=== PATIENT | female | born 1940 | race Caucasian/White ===

== ENCOUNTER 2019-07-27 09:11 | Observation (INO) ==
[2019-07-27 11:02] LABS: Hematocrit 25.1 % (37.0-47.0); Mean Cell Volume 63.1 fl (78-100); Mean Corpuscular Hemoglobin 17.3 pg (27-31); Mean Corpuscular Hgb Conc 27.5 g/dl (32-36); Mean Platelet Volume 9.1 fl (8-12.5); Neutrophil % 65.6 % (42-75.0); Platelet Count 461 K/mm3 (150-450); Red Blood Count 3.98 M/mm3 (4.2-5.4); Red Cell Distribution Width 19.7 % (11.5-14.0); White Blood Count 4.6 K/mm3 (4.0-10.5)
[2019-07-27 11:31] LABS: ALT 19 U/L (19-67); AST 19 U/L (0-48); Albumin * 3.5 gm/dl (3.4-5.0); Alkaline Phosphatase * 68 U/L (50-170); Anion Gap 15.6 mmol/L (6.8-13.8); BNP * 73 pg/mL (5-550); BUN/Creatinine Ratio 25.6 (9.0-21.6); Bilirubin, Total 0.5 mg/dL (0.0-1.1); Blood Urea Nitrogen 22 mg/dL (3-23); Ca. Corrected For Albumin 9.2 mg/dL (8.4-10.2); Calcium * 9.1 mg/dL (7.9-10.9); Carbon Dioxide 26.4 mmol/L (24-32.6); Chloride 101 mmol/L (97-106); Chol/HDL Risk Ratio 2.8 mg/dL (3.3-4.4); Cholesterol 176 mg/dL (0-200); Glucose * 95 mg/dL (70-110); HDL Cholesterol 62 mg/dL (40-60); LDL Cholesterol 105 mg/dL (70-130); Sodium 139 mmol/L (132-142); TSH * 1.059 uIU/mL (0.358-3.74); Total Protein 7.3 gm/dL (6.2-8.2); Triglycerides 44 mg/dL (30-200); Troponin I Less than 0.017 ng/mL (0.00-0.10); VLDL Cholesterol 9 mg/dL (5-40)
[2019-07-27 11:35] LABS: Hemoglobin 6.9 gm/dL (12.5-16.0)
[2019-07-27] MEDS ORDERED: NITROGLYCERIN 0.4 MG/TAB BTL SL PRN (16:25)
--- NOTE | 2019-07-27 16:39 | HP ---
Chief Complaint - Chief Complaint Date of Service: 07/27/19 Time of Service: 15:33 Chief Complaint: Shortness of breath for several months History of Present Illness: 78-year-old female with a past medical history of CKD stage III, asthma, anxiety, depression, degenerative joint disease, hypertension, hyperlipidemia, osteoarthritis presents from her primary care physician's office with complaints of shortness of breath times several months. Her PCP Dr. Bone is ordered a work-up on her and found that her hemoglobin was low at 6.9. He had her sent to the hospital for admission. At the time of admission she denies shortness chest pain, abdominal pain, nausea vomiting, blood in her stool or black stools. She is being admitted for symptomatic anemia and blood cell transfusion. Medical History (Last Reviewed 07/27/19 @ 13:51 by Ana Laura Velázquez RN) Anxiety Onset Date: ~10/21/17 Asthma Onset Date: ~1999 pos. methycholine test Chronic kidney disease, stage III (moderate) Onset Date: 06/04/06 GFR of 43 DJD (degenerative joint disease) Onset Date: ~2004 hip and spine Depression Onset Date: ~10/21/17 Diverticulosis Onset Date: Unknown Headache Onset Date: Unknown occipital Hyperlipidemia Onset Date: ~10/21/17 Hypertension Onset Date: ~2000 Knee pain Onset Date: Unknown Osteoarthritis Onset Date: ~2000 Pneumonia, viral Onset Date: ~10/21/17 Sciatica Onset Date: ~2000 Surgical History: Surgical History (Last Reviewed 07/27/19 @ 13:51 by Ana Laura Velázquez RN) History of hip replacement Onset Date: ~12/2004 right History of hysterectomy Onset Date: ~10/21/17 intact ovaries Hx of tonsillectomy Onset Date: ~1945 S/P epidural steroid injection Onset Date: 01/05/08 C4-5 Family History: Family History (Last Reviewed 07/27/19 @ 13:51 by Ana Laura Velázquez RN) Brother Alive and well Daughter Alive and well Father , age 88-colon cancer(dx age early 80's) Colon cancer Mother , age 92-unsure of cause No problems noted. Sister Cancer uterine ca Lymphedema Son Alive and well x3 Grandmother , Maternal-colon cancer Colon cancer Sister Cancer skin cancer Sister Alive and well Social History: (Last Updated 07/27/19 @ 11:16 by Vijay Bone MD) Social History: Marital status: household members: spouse number of children: 4 current occupational status: retired current occupation: retired Service: No Tobacco: Smoking Status: Never smoker Alcohol: alcohol intake: current Alcohol type: wine alcohol intake frequency: holiday/special occasion details: Occasionally Substance Use: substance use type: does not use Dietary Habits: caffeine: No Personal Safety: victim of physical abuse: No victim of emotional abuse: No Review Of Systems (GEN) - Review of Systems Generalized/Overall Review: Absent: Fever Respiratory: Present: Shortness of Breath Cardiac: Absent: Chest Pain Abdominal: Absent: Nausea, Vomiting, Abdominal Pain Misc: All systems neg except as marked Allergies/Adverse Reactions: Allergies Allergy/AdvReac Type Severity Reaction Status Date / Time shellfish derived Allergy Severe Anaphylaxis Verified 07/27/19 13:49 dog dander Allergy congestion Verified 07/27/19 09:21 egg Allergy unsure Verified 07/27/19 09:21 gabapentin [From Neurontin] Allergy didn't Verified 07/27/19 09:21 like the feeling grass pollen Allergy wheeze Verified 07/27/19 09:21 naproxen [From Naprosyn] Allergy didn't Verified 07/27/19 09:21 like the feeling tree and shrub pollen Allergy wheeze Verified 07/27/19 09:21 weed pollen Allergy wheeze Verified 07/27/19 09:21 Home Medications: HOME MEDICATIONS nitroglycerin 0.4 mg sublingual tablet 0.4 mg SL Q5M PRN 10/21/17 [Last Taken Unknown] omega 0-iyt-rfd-fish oil 1,200 mg (144 mg-216 mg) capsule 1 cap PO DAILY cap 10/21/17 [Last Taken Unknown] aspirin 81 mg tablet,delayed release 81 mg PO DAILY 10/29/17 [Last Taken Unknown] cholecalciferol (vitamin D3) 25 mcg (1,000 unit) tablet 1,000 unit PO DAILY 10/09 [Last Taken Unknown] potassium gluconate 595 mg (99 mg) tablet See Rx Instructions PO DAILY tab 10/29/17 [Last Taken Unknown] ascorbic acid (vitamin C) 500 mg tablet 500 mg PO DAILY 06/04/18 [Last Taken Unknown] amlodipine 5 mg tablet 5 mg PO DAILY #90 tab 04/06/19 [Last Taken Unknown] montelukast 10 mg tablet 5 mg PO DAILY #45 tab 04/06/19 [Last Taken Unknown] spironolactone 25 mg tablet 25 mg PO DAILY #90 tab 04/06/19 [Last Taken Unknown] Exam - Exam Vital Signs: Vital Signs - Last Taken Temp 37.0 C 07/27/19 15:35 Pulse 89 07/27/19 15:35 Resp 16 07/27/19 15:35 BP 143/51 07/27/19 15:35 Pulse Ox 97 07/27/19 15:35 Constitutional: Present: Alert, Cooperative, Well developed, Well nourished, Elderly ENT Exam: Present: hearing grossly normal, moist mucous membranes Eye Exam: bilateral eye: normal inspection Neck: Present: non-tender. Absent: lymphadenopathy (R), lymphadenopathy (L) Back Exam: Present: normal inspection, no CVA tenderness Respiratory: Present: lungs clear, no respiratory distress, no accessory muscle use, No wheezing. Absent: crackles, rhonchi Cardiovascular/Chest: Present: normal peripheral pulses, regular rate, rhythm, no murmur Peripheral Pulses: dorsalis-pedis (R): 1+, dorsalis-pedis (L): 1+ Abdomen: Present: Normal bowel sounds, soft, nontender Extremity: Present: lower extremity edema - 1+ pitting edema in bilateral lower extremities Skin Exam: Present: normal color, warm/dry Neurologic: Present: no motor/sensory deficits, alert, normal mood/affect Appearance: Present: appropriate appearance, appropriate insight Eye contact: Present: cooperative, good eye contact Thoughts: Present: normal thought pattern, normal mood /affect Diagnostic Studies: Abnormal Lab Results 07/27/19 07/27/19 07/27/19 Range/Units 10:15 10:15 13:47 RBC 3.98 L (4.2-5.4) M/mm3 Hgb 6.9 L* D (12.5-16.0) gm/dL Hct 25.1 L (37.0-47.0) % MCV 63.1 L (78-100) fl MCH 17.3 L (27-31) pg MCHC 27.5 L (32-36) g/dl RDW 19.7 H (11.5-14.0) % Plt Count 461 H (150-450) K/mm3 Eosinophils % 5.9 H (0.0-3.0) % Basophils % 1.1 H (0.0-1.0) % Lymphocytes # 0.93 L (1.5-3.5) k/mm3 Anion Gap 15.6 H (6.8-13.8) mmol/L BUN/Creatinine Ratio 25.6 H (9.0-21.6) HDL Cholesterol 62 H (40-60) mg/dL Cholesterol/HDL Ratio 2.8 L (3.3-4.4) mg/dL Crossmatch See Detail Laboratory Results WBC 4.6 K/mm3 (4.0-10.5) 07/27/19 10:15 RBC 3.98 M/mm3 (4.2-5.4) L 07/27/19 10:15 Hgb 6.9 gm/dL (12.5-16.0) L* D 07/27/19 10:15 Hct 25.1 % (37.0-47.0) L 07/27/19 10:15 MCV 63.1 fl (78-100) L 07/27/19 10:15 MCH 17.3 pg (27-31) L 07/27/19 10:15 MCHC 27.5 g/dl (32-36) L 07/27/19 10:15 RDW 19.7 % (11.5-14.0) H 07/27/19 10:15 Plt Count 461 K/mm3 (150-450) H 07/27/19 10:15 MPV 9.1 fl (8-12.5) 07/27/19 10:15 Immature Gran % (Auto) 0.20 % (0.001-0.429) 07/27/19 10:15 Immature Gran # (Auto) 0.01 K/mm3 (0.000-0.0310) 07/27/19 10:15 Neutrophils % 65.6 % (42-75.0) 07/27/19 10:15 Lymphocytes % 20.4 % (20-51) 07/27/19 10:15 Monocytes % 6.8 % (0.0-9) 07/27/19 10:15 Eosinophils % 5.9 % (0.0-3.0) H 07/27/19 10:15 Basophils % 1.1 % (0.0-1.0) H 07/27/19 10:15 Nucleated RBC % 0.0 k/mm3 (0-1) 07/27/19 10:15 Neutrophils # 3.0 K/mm3 (1.3-6.0) 07/27/19 10:15 Lymphocytes # 0.93 k/mm3 (1.5-3.5) L 07/27/19 10:15 Monocytes # 0.3 k/mm3 (0.0-1.0) 07/27/19 10:15 Eosinophils # 0.3 k/mm3 (0.0-0.7) 07/27/19 10:15 Absolute Basophils 0.1 k/mm3 (0.0-0.1) 07/27/19 10:15 Sodium 139 mmol/L (132-142) 07/27/19 10:15 Plasma Sodium 139 mmol/L (130-142) 07/27/19 10:15 Potassium 4.0 mmol/L (3.4-4.6) 07/27/19 10:15 Chloride 101 mmol/L (97-106) 07/27/19 10:15 Carbon Dioxide 26.4 mmol/L (24-32.6) 07/27/19 10:15 Anion Gap 15.6 mmol/L (6.8-13.8) H 07/27/19 10:15 BUN 22 mg/dL (3-23) 07/27/19 10:15 Creatinine 0.86 mg/dL (0.4-1.4) 07/27/19 10:15 Est GFR (Non-Af Amer) 67 mL/min (60-130) 07/27/19 10:15 BUN/Creatinine Ratio 25.6 (9.0-21.6) H 07/27/19 10:15 Random Glucose 95 mg/dL (70-110) 07/27/19 10:15 Calcium 9.1 mg/dL (7.9-10.9) 07/27/19 10:15 Calcium Adj for Albumin 9.2 mg/dL (8.4-10.2) 07/27/19 10:15 Total Bilirubin 0.5 mg/dL (0.0-1.1) 07/27/19 10:15 AST 19 U/L (0-48) 07/27/19 10:15 ALT 19 U/L (19-67) 07/27/19 10:15 Alkaline Phosphatase 68 U/L (50-170) 07/27/19 10:15 Troponin I Less than 0.017 ng/mL (0.00-0.10) 07/27/19 10:15 B-Natriuretic Peptide 73 pg/mL (5-550) 07/27/19 10:15 Total Protein 7.3 gm/dL (6.2-8.2) 07/27/19 10:15 Albumin 3.5 gm/dl (3.4-5.0) 07/27/19 10:15 Triglycerides 44 mg/dL (30-200) 07/27/19 10:15 Cholesterol 176 mg/dL (0-200) 07/27/19 10:15 LDL Cholesterol 105 mg/dL (70-130) 07/27/19 10:15 VLDL Cholesterol 9 mg/dL (5-40) 07/27/19 10:15 HDL Cholesterol 62 mg/dL (40-60) H 07/27/19 10:15 Cholesterol/HDL Ratio 2.8 mg/dL (3.3-4.4) L 07/27/19 10:15 TSH 1.059 uIU/mL (0.358-3.74) 07/27/19 10:15 Blood Type O Positive 07/27/19 13:47 Antibody Screen Negative 07/27/19 13:47 Crossmatch See Detail 07/27/19 13:47 Assessment/Plan - Narrative Narrative: 78-year-old female with a past medical history of CKD stage III, asthma, anxiety, depression, degenerative joint disease, hypertension, hyperlipidemia, osteoarthritis presents from her primary care physician's office with complaints of shortness of breath times several months. Her PCP Dr. Bone is ordered a work-up on her and found that her hemoglobin was low at 6.9. He had her sent to the hospital for admission. At the time of admission she denies shortness chest pain, abdominal pain, nausea vomiting, blood in her stool or black stools. She is being admitted for symptomatic anemia and blood cell transfusion. - Assessment/Plan (1) Symptomatic anemia Problem: Acute (2) Shortness of breath Problem: Acute (3) Hypertension Problem: Chronic Qualifiers: Hypertension type: essential hypertension (4) Hyperlipidemia Problem: Chronic Qualifiers: (5) Chronic kidney disease Problem: Chronic Qualifiers: Chronic kidney disease stage: stage 3 (moderate) (6) Asthma Problem: Chronic Qualifiers:
[2019-07-27 21:07] LABS: Hemoglobin 8.7 gm/dL (12.5-16.0); Mean Cell Volume 66.5 fl (78-100); Mean Platelet Volume 8.6 fl (8-12.5); Neutrophil % 70.2 % (42-75.0); Platelet Count 409 K/mm3 (150-450); Red Blood Count 4.36 M/mm3 (4.2-5.4); Red Cell Distribution Width 23.6 % (11.5-14.0); White Blood Count 5.7 K/mm3 (4.0-10.5)
[2019-07-28 06:23] LABS: Hematocrit 26.9 % (37.0-47.0); Mean Cell Volume 65.9 fl (78-100); Mean Corpuscular Hemoglobin 19.4 pg (27-31); Mean Corpuscular Hgb Conc 29.4 g/dl (32-36); Neutrophil # 3.5 K/mm3 (1.3-6.0); Neutrophil % 67.6 % (42-75.0); Platelet Count 408 K/mm3 (150-450); Red Blood Count 4.08 M/mm3 (4.2-5.4); Red Cell Distribution Width 23.3 % (11.5-14.0); White Blood Count 5.2 K/mm3 (4.0-10.5)
[2019-07-28 06:42] LABS: Hemoglobin 7.9 gm/dL (12.5-16.0)
[2019-07-28] MEDS ORDERED: SPIRONOLACTONE 25 MG TABLET PO SCH (09:00)
[2019-07-28] MEDS ORDERED: amLODIPine BESYLATE 5 MG TABLET PO SCH (09:00)
[2019-07-28] MEDS ORDERED: CHOLECALCIFEROL 1,000 UNIT CAPSULE PO SCH (09:00)
[2019-07-28] MEDS ORDERED: ASCORBIC ACID 500 MG TABLET PO SCH (09:00)
[2019-07-28] MEDS ORDERED: OMEGA-3 FATTY ACIDS 1 CAP CAPSULE PO SCH (09:00)
[2019-07-28] MEDS ORDERED: ASPIRIN 81 MG TABLET.DR PO SCH ×2 (09:00→21:00)
[2019-07-28] MEDS ORDERED: MONTELUKAST SODIUM 5 MG TAB.CHEW PO SCH ×2 (09:00→21:00)
--- NOTE | 2019-07-28 12:02 | DS ---
(1) Symptomatic anemia Problem: Acute (2) Shortness of breath Problem: Acute (3) Hypertension Problem: Chronic Qualifiers: Hypertension type: essential hypertension (4) Hyperlipidemia Problem: Chronic Qualifiers: (5) Chronic kidney disease Problem: Chronic Qualifiers: Chronic kidney disease stage: stage 3 (moderate) (6) Asthma Problem: Chronic Qualifiers: Hospital Course: 78-year-old female with a past medical history of CKD stage III, asthma, anxiety, depression, degenerative joint disease, hypertension, hyperlipidemia, osteoarthritis presents from her primary care physician's office with complaints of shortness of breath times several months. Her PCP Dr. Bone is ordered a work-up on her and found that her hemoglobin was low at 6.9. He had her sent to the hospital for admission. At the time of admission she denies shortness chest pain, abdominal pain, nausea vomiting, blood in her stool or black stools. She is being admitted for symptomatic anemia and blood cell transfusion. She is status post 1 unit of blood and her hemoglobin today is 7.9. She is feeling better with less shortness of breath and no palpitations. I considered doing further work-up for the microcytosis but since she is status post blood transfusion the results will be skewed. She will likely need work-up for the microcytosis including Iron studies and peripheral smear as an outpatient. I will also have her repeat her CBC in 2 days on 07/30/2019 to assure that her hemoglobin is holding up. Guaiac stool was negative in the hospital. She complains of constipation and hard stools and was advised to take [id number]-[id number] fiber supplementation. She will follow-up with her PCP within 1 week of discharge. Procedures Performed: none Results and Findings: Lab Pending Results 07/27/19 10:15: WBC 4.6, RBC 3.98 L, Hgb 6.9 L* D, Hct 25.1 L, MCV 63.1 L, MCH 17.3 L, MCHC 27.5 L, RDW 19.7 H, Plt Count 461 H, MPV 9.1, Immature Gran % (Auto) 0.20, Immature Gran # (Auto) 0.01, Neutrophils % 65.6, Lymphocytes % 20.4, Monocytes % 6.8, Eosinophils % 5.9 H, Basophils % 1.1 H, Nucleated RBC % 0.0, Neutrophils # 3.0, Lymphocytes # 0.93 L, Monocytes # 0.3, Eosinophils # 0.3, Absolute Basophils 0.1 07/27/19 10:15: Sodium 139, Plasma Sodium 139, Potassium 4.0, Chloride 101, Carbon Dioxide 26.4, Anion Gap 15.6 H, BUN 22, Creatinine 0.86, Est GFR (Non-Af Amer) 67, BUN/Creatinine Ratio 25.6 H, Random Glucose 95, Calcium 9.1, Calcium Adj for Albumin 9.2, Total Bilirubin 0.5, AST 19, ALT 19, Alkaline Phosphatase 68, Troponin I Less than 0.017, B-Natriuretic Peptide 73, Total Protein 7.3, Albumin 3.5, Triglycerides 44, Cholesterol 176, LDL Cholesterol 105, VLDL Cholesterol 9, HDL Cholesterol 62 H, Cholesterol/HDL Ratio 2.8 L, TSH 1.059 07/27/19 13:47: Blood Type O Positive, Antibody Screen Negative, Crossmatch See Detail 07/27/19 21:00: WBC 5.7 D, RBC 4.36, Hgb 8.7 L, Hct 29.0 L, MCV 66.5 L, MCH 20.0 L, MCHC 30.0 L, RDW 23.6 H, Plt Count 409, MPV 8.6, Immature Gran % (Auto) 0.50 H, Immature Gran # (Auto) 0.03, Neutrophils % 70.2, Lymphocytes % 17.1 L, Monocytes % 7.3, Eosinophils % 4.0 H, Basophils % 0.9, Nucleated RBC % 0.0, Neutrophils # 4.0, Lymphocytes # 0.98 L, Monocytes # 0.4, Eosinophils # 0.2, Absolute Basophils 0.1 07/28/19 05:45: WBC 5.2, RBC 4.08 L, Hgb 7.9 L*, Hct 26.9 L, MCV 65.9 L, MCH 19.4 L, MCHC 29.4 L, RDW 23.3 H, Plt Count 408, MPV 9.0, Immature Gran % (Auto) 0.40, Immature Gran # (Auto) 0.02, Neutrophils % 67.6, Lymphocytes % 18.8 L, Monocytes % 7.0, Eosinophils % 5.4 H, Basophils % 0.8, Nucleated RBC % 0.0, Neutrophils # 3.5, Lymphocytes # 0.97 L, Monocytes # 0.4, Eosinophils # 0.3, Absolute Basophils 0.0 07/28/19 09:46: Stool Occult Blood Negative Discharge Location: Home Disposition: Home self-care Condition: Stable Discharge Activity: Activity as tolerated Discharge Diet: Low salt, Low fat/chol Referrals: Vijay Bone MD [Primary Care Provider] - Complete Home Medications List: Complete Home Medication List: nitroglycerin 0.4 mg sublingual tablet 0.4 mg SL Q5M PRN 10/21/17 omega 8-rhk-odp-fish oil 1,200 mg (144 mg-216 mg) capsule 1 cap PO DAILY cap 10/21/17 aspirin 81 mg tablet,delayed release 81 mg PO DAILY 10/29/17 cholecalciferol (vitamin D3) 25 mcg (1,000 unit) tablet 1,000 unit PO DAILY 10/29/17 potassium gluconate 595 mg (99 mg) tablet See Rx Instructions PO DAILY tab 10/29/17 ascorbic acid (vitamin C) 500 mg tablet 500 mg PO DAILY 06/04/18 amlodipine 5 mg tablet 5 mg PO DAILY #90 tab 04/06/19 montelukast 10 mg tablet 5 mg PO DAILY #45 tab 04/06/19 spironolactone 25 mg tablet 25 mg PO DAILY #90 tab 04/06/19
[2019-07-28 13:45] VITALS: BP 133/59
== END 2019-07-28 13:30 | disposition home or self-care (01) ==
LOC: CCFAL → MS 09:11 → LAB 09:11
PROVIDERS: ADMIT Internal Medicine; ATTEND Internal Medicine
CPT/HCPCS: 36415; 36430; 80053; 80061; 82272; 83519; 83880; 84443; 84484; 85025; 86850; 93005; 99215; G0378; G0463; P9016

== ENCOUNTER 2020-07-18 08:00 | Inpatient (IN) ==
--- NOTE | 2020-07-06 08:45 | ANES ---
Anesthesia Pre Procedure Eval HOME MEDICATIONS nitroglycerin 0.4 mg sublingual tablet 0.4 mg SL Q5M PRN 10/21/17 [Last Taken Unknown] amlodipine 5 mg tablet 5 mg PO DAILY #90 tab 04/19/20 [Last Taken Unknown] montelukast 10 mg tablet 5 mg PO DAILY #45 tab 04/19/20 [Last Taken Unknown] spironolactone 25 mg tablet 25 mg PO DAILY #90 tab 04/19/20 [Last Taken Unknown] tramadol 50 mg tablet 50 mg PO Q6H PRN #30 tab 04/28/20 [Last Taken Unknown] Allergies/Adverse Reactions: Allergies Allergy/AdvReac Type Severity Reaction Status Date / Time shellfish derived Allergy Severe Anaphylaxis Verified 06/07/20 12:43 dog dander Allergy congestion Verified 06/07/20 12:43 grass pollen Allergy wheeze Verified 06/07/20 12:43 tree and shrub pollen Allergy wheeze Verified 06/07/20 12:43 weed pollen Allergy wheeze Verified 06/07/20 12:43 gabapentin [From Neurontin] AdvReac didn't Verified 06/07/20 13:31 like the feeling naproxen [From Naprosyn] AdvReac didn't Verified 06/07/20 13:31 like the feeling - Planned Procedure Planned Procedure: Right Arthroplasty Total Knee Medical History (Last Reviewed 06/07/20 @ 13:32 by Brittney Alexander RN) Anxiety Onset Date: ~10/21/17 Asthma Onset Date: ~1999 pos. methycholine test Chronic kidney disease, stage III (moderate) Onset Date: 06/04/06 GFR of 43 DJD (degenerative joint disease) Onset Date: ~2004 hip and spine Depression Onset Date: ~10/21/17 Diverticulosis Onset Date: Unknown Headache Onset Date: Unknown occipital Hyperlipidemia Onset Date: ~10/21/17 Hypertension Onset Date: ~2000 Knee pain Onset Date: Unknown Osteoarthritis Onset Date: ~2000 Pneumonia, viral Onset Date: ~10/21/17 Sciatica Onset Date: ~2000 Surgical History (Last Reviewed 06/07/20 @ 13:32 by Brittney Alexander RN) History of hip replacement Onset Date: ~12/2004 right History of hysterectomy Onset Date: ~10/21/17 intact ovaries Hx of tonsillectomy Onset Date: ~1945 S/P epidural steroid injection Onset Date: 01/05/08 C4-5 Family History (Last Reviewed 06/07/20 @ 13:32 by Brittney Alexander RN) Brother Alive and well Daughter Alive and well Father , age 88-colon cancer(dx age early 80's) Colon cancer Mother , age 92-unsure of cause No problems noted. Sister Cancer uterine ca Lymphedema Son Alive and well x3 Grandmother , Maternal-colon cancer Colon cancer Sister Cancer skin cancer Sister Alive and well - Respiratory Smoking Status: Never smoker Discussed smoking cessation including day of surgery: No Sleep Apnea currently treated: No Sleep Apnea by current assessment: No Discussed Risks/Treatment of BETH: No - Cardiovascular Tolerate Activity: Fair Heart Sounds: S1 & S2, Regular - Anesthesia Assessment and Plan ASA Class: PS, III Anesthesia Type Plan: Block - Right ultrasound guided adductor canal nerve block for postop analgesia, Spinal
[~2020-07-18 08:00] MED LIST: MORPHINE SULFATE 15 MG TABLET.SA PO PRN; ROPIVACAINE/CLONIDIN/KETOROLAC 50 ML SYRINGE IJ PRN; TRANEXAMIC ACID 1,000 MG in NORMAL SALINE 100 ML IV PRN
[2020-07-18] MEDS: RINGER'S SOLUTION,LACTATED 1,000 ML IV PRN ×2 (08:49→11:54)
[2020-07-18] MEDS ORDERED: ceFAZolin SODIUM 1 GM VIAL ONE (09:02)
[2020-07-18] MEDS ORDERED: ROPIVACAINE/CLONIDIN/KETOROLAC 50 ML SYRINGE IJ ONE (09:02)
[2020-07-18] MEDS ORDERED: HYDROmorphone HCL 2 MG/ML VIAL IV PRN (09:20)
[2020-07-18] MEDS ORDERED: diphenhydrAMINE HCL 50 MG/ML VIAL IV PRN ×2 (09:20→12:18)
[2020-07-18] MEDS ORDERED: ONDANSETRON HCL/PF 2 MG/ML VIAL IV PRN ×2 (09:20→12:18)
[2020-07-18] MEDS ORDERED: PROCHLORPERAZINE EDISYLATE 5 MG/ML VIAL IV PRN (09:20)
[2020-07-18] MEDS ORDERED: NALOXONE HCL 0.4 MG/ML VIAL IV PRN (09:20)
[2020-07-18] MEDS ORDERED: LIDOCAINE HCL 20 ML VIAL ONE (09:23)
[2020-07-18] MEDS ORDERED: PROPOFOL VIAL IV ONE (09:24)
[2020-07-18] MEDS ORDERED: BUPIVACAINE HCL/EPINEPHRINE 50 ML VIAL ONE (09:24)
[2020-07-18] MEDS ORDERED: fentaNYL CITRATE/PF 50 MCG/ML AMPUL ONE (09:24)
[2020-07-18] MEDS ORDERED: ONDANSETRON HCL/PF 2 MG/ML VIAL ONE (09:24)
[2020-07-18] MEDS ORDERED: ceFAZolin SODIUM 1 GM VIAL IV ONE (10:30)
[2020-07-18] MEDS ORDERED: MAGNESIUM HYDROXIDE 30 ML UDC PO PRN (12:18)
[2020-07-18] MEDS ORDERED: MAG HYDROX/ALUMINUM HYD/SIMETH 30 ML UDC PO PRN (12:18)
[2020-07-18] MEDS ORDERED: DEXTROSE 5%-LACTATED RINGERS 1,000 ML IV PRN (12:18)
[2020-07-18] MEDS ORDERED: ZOLPIDEM TARTRATE 5 MG TABLET PO PRN (12:18)
[2020-07-18] MEDS ORDERED: MORPHINE SULFATE 2 MG/ML DISP.SYRIN IV PRN (12:18)
--- NOTE | 2020-07-18 12:18 | OR ---
Operative Report - Dictated Report Narrative: Date: 07/18/2020 Preoperative diagnosis: Right knee degenerative joint disease. Postoperative diagnosis: Right knee degenerative joint disease. Procedure: Right total knee arthroplasty. Surgeon: Ibrahima Nowak M.D. Property Handler: Jose Goncalves PA-C (provided and essential set of skilled, educated hands that assisted with transfer, positioning, prepping, draping, manipulation, retraction, placement of jigs, injection, insertion of implants, irrigation, closure wounds, and dressings all of which could not be performed by the available surgical crew) Anesthesia: Spinal with regional block and local periarticular joint injection. Complications: None Specimens: Bone. Estimated blood loss: Minimal. Tourniquet time: 70 minutes at 325 millimeters of mercury. Retained implants: Depuy Attune size 4 right lugged cemented posterior stabilized femoral component. Size 4 fixed-bearing cemented tibial platform. 4 by 5 millimeter posterior stabilized cross-linked tibial insert. 38 millimeter medialized patella button. Indications: Mrs. Castillo is a 79-year-old female who has had longstanding right knee pain and arthrosis. This patient was followed in my clinic for period of time with significant complaints of right knee pain consistent with arthritic changes. She had failed conservative measures including, but not limited to, activity modification, passage of time, medications, and other conservative measures. Patient wished to proceed with surgical treatment. The risks, benefits, and alternatives were discussed in clinic. The risks of , blood clots, bleeding, infection, nerve/tendon blood vessel/ injury, malposition of components, intraoperative fracture, postoperative limited range of motion, persistent pain, failure of components, and need for additional procedures. Patient wished to proceed consent was obtained after answering all questions. Procedure: After marking the correct extremity on the floor, the patient was taken to the operating room. A timeout was performed. IV antibiotics consisting of Ancef were administered prior to the procedure. A regional followed by spinal anesthetic was induced by anesthesia, per my request, on the operative table with all bony prominences well-padded. Polo catheter was placed, and a bump was placed under the operative side buttock. SCDs and FRED hose were utilized on the nonoperative leg. A well-padded tourniquet was applied to the operative thigh. The operative leg was then pre-scrubbed with alcohol, prepped, and draped in a standard sterile fashion. After exsanguinating the extremity with an Esmarch bandage, the tourniquet was inflated. After marking out the anterior knee for standard incision centered over the patella, the skin was incised and dissected down to the joint retinaculum. The joint retinaculum was marked out as well as the horizontal axis of the patella, and a standard medial parapatellar arthrotomy was then made. The most proximal aspect of the quadriceps tendon and the patella tendon insertion were protected from release. A partial synovectomy was performed as well as a resection of the infrapatellar fat pad. The distal femoral fat pad proximal to the trochlea was also resected using cautery. The soft tissues were elevated off the medial asp ect of the proximal tibia using a Rutherford elevator ensuring that we did not transect the medial collateral ligament. Upon initial evaluation range of motion was approximately 0 degrees to 120 degrees of flexion. There were signs of advanced arthrosis in the lateral and patellofemoral greater than medial joint spaces. There were large marginal osteophytes which were removed with a rongeur. The knee was hyperflexed and the patella was tucked laterally. Protecting the surrounding soft tissues with Homans, an entry drill was placed down the femoral canal using Whitesides line for guidance into the entry point. The intramedullary femoral alignment brian was utilized in order to cut the distal femur in 5 degrees of valgus resecting 10 millimeters of bone. Next the distal femur was sized to a size 4. A posterior referencing guide was utilized to place the distal femoral cutting block in 3 degrees of external rotation. This was pinned into place. The rotation was confirmed both visually and based on anatomic landmarks. The 4 in 1 cutting jig of the appropriate size was utilized in order to make all bony cuts. The rose wing was used to ensure no notching. Retractors were utilized in order to protect surrounding soft tissues. This cut did not result in any excessive notching. We then cut the box centered over the distal femur. This allowed for resection of the anterior and posterior cruciate ligaments. I then turned my attention to the preparation of the tibia. Using an extra medullary tibial alignment brian, 5 millimeters of bone was resected off the medial articular surface. This was made perpendicular to the mechanical axis of the joint with the alignment brian centered over the ankle mortise. The alignment brian was checked and was noted to be parallel to the [facility] anical axis, centered over the medial one third of the tibial tubercle, paralleling the anterior surface of the tibia. We then turned our attention to the remaining meniscus and soft tissues. These were removed while protecting the surrounding ligaments and soft tissues. The marginal osteophytes off the anterior, posterior, medial, lateral aspects of the femur and tibia were removed. The tibia was sized out to a size 4. Next the tibia was drilled and punched in an externally rotated position. Next the trial femur and a series of tibial inserts were utilized in order to allow for full extension and maximal flexion. It was found that a 5 millimeter insert gave the best range of motion and stability at multiple flexion points as well as at full extension there was less than 2 mm of gapping both medially and laterally. There is minimal anterior translation with the knee at 90 degrees of flexion and no signs of being able to dislocate the knee. The patella was then prepared. The initial thickness was 20 millimeters. This was reamed down to 11 millimeters parallel to the anterior surface of the patella. It was sized out to a size 38 medialized patella button. This was then drilled and trialed. Without any medial restraint the patella tracked appropriately and did not sublux or dislocate. At this point, it was felt these were the appropriate sized implants, and all trials were removed. The standard periarticular joint injection consisting of ropivacaine, Toradol, and epinephrine were injected into the periarticular joint tissues. The bony surfaces were thoroughly irrigated with a pulsatile-suction saline irrigation device. A bone plug from the prior resected anterior chamfer cut was placed into the drill hole at the distal femur. The bony surfaces were then dried in preparation for placement of the implants. The cement was vacuum mixed per the chain saw mechanic's instructions. The cement was placed on the dry bony surfaces and posterior aspect of the implants. The implants were impacted into place, removing all extruded cement. At this point anesthesia administered tranexamic acid per protocol intravenously. The knee was placed in extension with axial loading with the trial insert while the cement cured. Once the cement cured, all remaining extruded cement was removed. The knee was placed through a range of motion with the trial insert to ensure appropriate range of motion and stability. Final range of motion was approximately 0 to 120 degrees. The knee was again thoroughly irrigated with pulsatile saline lavage. The final polyethylene insert was then impacted into place ensuring no retained soft tissues. The remaining periarticular joint injection was injected. A medium Hemovac drain was placed exiting superior laterally. The knee was then placed over a triangle and the arthrotomy was closed with interrupted #1 Vicryl after thoroughly irrigating the joint. The deep and subcutaneous tissues were closed with interrupted 0 and 3-0 Vicryl respectively. Skin was closed with a running subcutaneous 3-0 Monocryl and Prineo Dermabond dressing. 4 x 4's, Sof-Rol, and a full leg Raimundo wrap were applied. All sponge, needle, blade, and instrument counts were correct prior to closing the wounds. Postoperative condition: The patient was awoken and transferred to the postanesthesia care unit in stable condition. Plan is to be admitted to the inpatient medical/surgical floor postoperatively for 24 hours of IV antibiotics, physical therapy, occupational therapy, and medical comanagement. Patient will be weightbearing as tolerated with range of motion as tolerated. DVT prophylaxis will be with SCDs, FRED hose, and pharmacological anticoagulation. Anticipated hospital stay is approximately 1-3 days.
--- NOTE | 2020-07-18 13:15 | ANES ---
Post Anesthesia Discharge - Transfer of Care Transfer of Care handoff given to nurse: Yes - Discharge from PACU Discharge from PACU when meets criteria: Yes - Discharge to ASU Discharge to ASU-no complications/pt stable: Yes
--- NOTE | 2020-07-18 13:17 | ANES ---
Anesthesia Procedure Note Procedure Note: ANESTHESIA PROCEDURE NOTE Date of Procedure: 07/18/2020. Time of procedure: 1025. Performed by: Riky Glynn CRNA Electrical Installer: None. Preprocedure diagnosis: Right knee degenerative joint disease. Post procedure diagnosis: Same. Procedure: Right ultrasound guided adductor canal block for postoperative analgesia. Indications: The patient is a 79-year-old female, requesting right ultrasound- guided abductor canal nerve block for postoperative analgesia related to right total knee arthroplasty. Findings: See below. Details of the procedure: The tissue over the intended target site was cleansed with ChloraPrepand draped in a sterile fashion. 2 ml Lidocaine 1 % was infiltrated to the skin and subcutaneous tissue at the intended target site. Under sterile technique and ultrasound guidance a 20-gauge block needle was inserted through the right sartorius muscle to the saphenous nerve just anterior and medial to the superficial femoral artery and vein. 15 mL's of 0.5% bupivacaine was injected after negative aspiration for blood. Needle tip and spread of local anesthetic surrounding the saphenous nerve was observed throughout the injection with real time ultrasound visualization. The needle was then removed intact. No complications were noted. The images were retained in the Hospital medical database. EBL: Minimal. Fluids: N/A. Specimen: N/A. Post procedure condition: The patient tolerated the procedure well. No complications were noted. Thank you for this consultation. Riky Glynn CRNA
--- NOTE | 2020-07-18 13:18 | ANES ---
Post Anesthesia Assessment - Vital Signs Vitals: Last Vital Signs Temp 36.6 C 07/18/20 13:05 Pulse 79 07/18/20 13:05 Resp 12 07/18/20 13:05 BP 123/54 07/18/20 13:05 Pulse Ox 97 07/18/20 13:05 Airway Patency: Normal - Mental Status Level Of Consciousness: Awake - Pain Level Pain Score: 0 - N/V Assessment Nausea/Vomiting Presence: None Dehydration:: No
[2020-07-18] MEDS: oxyCODONE HCL/ACETAMINOPHEN 1 TAB TABLET PO PRN ×3 (14:08→20:51)
[2020-07-18] MEDS: ceFAZolin SODIUM 1 GM in DEXTROSE 5 % IN WATER 100 ML IV SCH ×4 (14:13→20:51)
[2020-07-18] MEDS: ACETAMINOPHEN 500 MG TABLET PO PRN (17:38)
[2020-07-18] MEDS: SENNOSIDES/DOCUSATE SODIUM 1 TAB TABLET PO SCH (20:52)
[2020-07-19] MEDS: ceFAZolin SODIUM 1 GM in DEXTROSE 5 % IN WATER 100 ML IV SCH ×2 (01:45)
[2020-07-19] MEDS: oxyCODONE HCL/ACETAMINOPHEN 1 TAB TABLET PO PRN ×2 (05:25→07:27)
[2020-07-19 06:24] LABS: Hematocrit 38.1 % (37.0-47.0); Hemoglobin 12.5 gm/dL (12.5-16.0); Mean Cell Volume 91.8 fl (78-100); Mean Corpuscular Hemoglobin 30.1 pg (27-31); Mean Corpuscular Hgb Conc 32.8 g/dl (32-36); Platelet Count 184 K/mm3 (150-450); Red Blood Count 4.15 M/mm3 (4.2-5.4); Red Cell Distribution Width 13.2 % (11.5-14.0)
[2020-07-19 06:39] LABS: BUN/Creatinine Ratio 17.1 (9.0-21.6); Calcium * 8.1 mg/dL (7.9-10.9); Carbon Dioxide 29.8 mmol/L (24-32.6); Potassium 3.8 mmol/L (3.4-4.6)
[2020-07-19] MEDS ORDERED: MONTELUKAST SODIUM 10 MG TABLET PO SCH (09:00)
[2020-07-19] MEDS: ACETAMINOPHEN 500 MG TABLET PO PRN (10:33)
[2020-07-19] MEDS: ASCORBIC ACID 500 MG TABLET PO SCH (10:41)
[2020-07-19] MEDS: CHOLECALCIFEROL 1,000 UNIT CAPSULE PO SCH (10:41)
[2020-07-19] MEDS: CYANOCOBALAMIN 1,000 MCG TABLET PO SCH (10:41)
[2020-07-19] MEDS: MONTELUKAST SODIUM 5 MG TAB.CHEW PO SCH (10:41)
[2020-07-19] MEDS: amLODIPine BESYLATE 5 MG TABLET PO SCH (10:41)
[2020-07-19] MEDS: SPIRONOLACTONE 25 MG TABLET PO SCH (10:41)
[2020-07-19] MEDS: ENOXAPARIN SODIUM 40 MG/0.4 ML SYRG SC SCH (11:32)
[2020-07-19] MEDS: HYDROcodone/ACETAMINOPHEN 1 EACH TABLET PO PRN ×3 (13:58→20:43)
--- NOTE | 2020-07-19 14:12 | PN ---
Subjective - Date and Time Seen Date: 07/19/20 Time: 14:07 Subjective Narrative: 79-year-old female postop day 1 status post right total knee arthroplasty. Patient notes she is not been able to ambulate outside of her room at this time. She is continued have significant nausea. She notes she still has had significant pain especially with weightbearing activities. She notes she is been taking her pain medicine, she tolerated a small amount of food for lunch however still has decreased appetite is at home. Patient has no other significant acute complaints at this time other than continued pain of her right knee. Objective - Vitals Vitals: Last Vital Signs Temp 36.5 C 07/19/20 10:00 Pulse 77 07/19/20 10:00 Resp 16 07/19/20 10:00 BP 141/57 07/19/20 10:00 Pulse Ox 100 07/19/20 10:00 - Abnormal Lab Findings Abnormal Lab Findings: Abnormal Lab Results 07/19/20 07/19/20 Range/Units 06:18 06:18 RBC 4.15 L (4.2-5.4) M/mm3 Random Glucose 112 H (70-110) mg/dL - Exam Constitutional: Present: Alert, Cooperative Respiratory: Present: no respiratory distress Extremity: Present: other - Right lower extremity--> sensation tact light touch, distal capillary refill brisk, compression stocking in place, ice machine in pl dom, 5/5 plantar flexion and dorsiflexion of the ankle, diffuse mild tenderness about right knee Skin Exam: Present: normal color, warm/dry Appearance: Present: appropriate appearance Eye contact: Present: cooperative, good eye contact Thoughts: Present: normal thought pattern Cauti Physician Documentation - Urinary Catheter Management Urethral (Polo) Date of Insertion: 07/18/20 Time of Insertion: 11:00 Date of Removal: 07/19/20 Time of Removal: 05:30 Assessment/Plan Plan Narrative: -79-year-old female postop day 1 status post right total knee arthroplasty. Overall patient is doing well however she has had considerable nausea we are adjusting pain medication regimen as well as using Zofran for treatment at this time. Patient not be able to complete her ambulatory goals to be safely discharged home. Patient continues to work with physical therapy to improve on her overall ambulation. Patient otherwise still has significant pain right lower extremity. We will continue to adjust treatment plan acutely in order to improve patient's outcome. Patient will continue to be monitored in the hospital at this time. Continue with following recommendations: -Weightbearing as tolerated, assistive device -PT/OT progress per protocol -DVT prophylaxis: Lovenox, FRED hose -P.o. diet as tolerated, Zofran as needed for nausea -Pain medication: Hydrocodone as prescribed -Continue to monitor wound per nail in place -Ice machine to be used during sedentary activity -Disposition: Patient remains inpatient continue in the hospital due to continued pain control, failure to meet ambulation goals, continued nausea. Plan to continue treating these appropriately addressed regimen as needed. Will monitor patient overnight reevaluate tomorrow for possible discharge home. - Problems/Diagnosis (1) Status post total right knee replacement Problem: Acute
[2020-07-19] MEDS: SENNOSIDES/DOCUSATE SODIUM 1 TAB TABLET PO SCH (20:44)
[2020-07-20] MEDS: HYDROcodone/ACETAMINOPHEN 1 EACH TABLET PO PRN ×4 (01:05→11:37)
[2020-07-20] MEDS: ASCORBIC ACID 500 MG TABLET PO SCH (09:03)
[2020-07-20] MEDS: SPIRONOLACTONE 25 MG TABLET PO SCH (09:03)
[2020-07-20] MEDS: CHOLECALCIFEROL 1,000 UNIT CAPSULE PO SCH (09:04)
[2020-07-20] MEDS: CYANOCOBALAMIN 1,000 MCG TABLET PO SCH (09:04)
[2020-07-20] MEDS: MONTELUKAST SODIUM 5 MG TAB.CHEW PO SCH (09:05)
[2020-07-20] MEDS: amLODIPine BESYLATE 5 MG TABLET PO SCH (09:05)
[2020-07-20] MEDS: ENOXAPARIN SODIUM 40 MG/0.4 ML SYRG SC SCH (11:32)
--- NOTE | 2020-07-20 12:09 | DS ---
(1) Nausea & vomiting Problem: Resolved (2) Status post total right knee replacement Problem: Acute (3) Asthma Problem: Chronic Qualifiers: Asthma severity: mild Asthma persistence: intermittent Asthma complication type: uncomplicated Qualified Code(s): J45.20 - Mild intermittent asthma, uncomplicated (4) CKD (chronic kidney disease) Problem: Chronic Qualifiers: Chronic kidney disease stage: stage 3 (moderate) (5) Hyperlipidemia Problem: Chronic Qualifiers: Hyperlipidemia type: pure hypercholesterolemia Qualified Code(s): E78.00 - Pure hypercholesterolemia, unspecified (6) Hypertension Problem: Chronic Qualifiers: Hypertension type: essential hypertension Qualified Code(s): I10 - Essential (primary) hypertension Date of Discharge:: 07/20/20 Hospital Course: Mrs. Castillo was admitted to the floor after undergoing right total knee arthroplasty. Tolerated this well. Was admitted to the floor postoperatively for 24 hours of IV antibiotics, pain control, medical comanagement, and occupational and physical therapy. OT and PT were consulted to assist with activities of daily living and ambulation. Was made weightbearing as tolerated with range of motion as tolerated. Pain was initially controlled with IV reg imen. She did have some nausea and after changing her pain medicines is improved. This was transitioned to oral once tolerating a by mouth intake. Was resumed on home diet and medications. A Polo catheter was inserted in the operating room which was discontinued by postoperative day 1. A drain was placed intraoperatively into the knee which was discontinued on postoperative day 1. Lovenox, SCDs, and FRED hose were utilized for DVT prophylaxis. Vital signs remained stable to the hospital course. Labs were obtained which showed a final hemoglobin of 12.5 grams. BMP was reviewed and was stable. Physical examination throughout the hospital course showed an extremity that had sensation that was intact to light touch, palpable pulses, a benign wound, motor intact to the toes, ankle, and knee. Knee range of motion was approximately 5 degrees to 60 degrees. Once an oral pain regimen was tolerated and physical therapy goals were met, it was felt that they were stable for discharge to home. Instructions: Continue with weightbearing as tolerated and range of motion as tolerated. It is okay to shower and get the wound wet as long as there is no drainage from the wound. Do not bathe or soak the wound. If there is any drainage from the wound keep the wound clean and dry and cover with dry gauze and tape. Change every 2- 3 days as needed if there is any drainage. Cover wound while showering if there is any drainage. Continue with physical therapy. Resume home diet. Report any fever over 101.5 Fahrenheit, uncontrolled pain, increased drainage, foul odor of drainage, new or increased calf pain or shortness of breath, or any other significant complaints. A 325mg daily aspirin will be started after finishing anticoagulation if not allergic. Continue with FRED hose on the operative extremity until instructed otherwise. No driving until instructed otherwise. Follow up in approximately 2-3 weeks. Procedures Performed: see notes below List Procedures: Right total knee arthroplasty Results and Findings: Lab Pending Results 07/19/20 06:18: WBC 7.0, RBC 4.15 L, Hgb 12.5, Hct 38.1, MCV 91.8, MCH 30.1, MCHC 32.8, RDW 13.2, Plt Count 184, MPV 9.0 07/19/20 06:18: Sodium 139, Plasma Sodium 139, Potassium 3.8, Chloride 104, Carbon Dioxide 29.8, Anion Gap 9.0, BUN 13, Creatinine 0.76, Est GFR (Non-Af Amer) 78, BUN/Creatinine Ratio 17.1, Random Glucose 112 H, Calcium 8.1 Disposition: Home self-care Condition: Good Discharge Activity: Activity as tolerated, Weight bearing Discharge Diet: General/regular food Referrals: Vijay Bone MD [Primary Care Provider] - Additional Patient Instructions (free text): Physical Therapy at [facility] outpatient rehab department on SaturdayJuly 22 at 3:30pm. Follow up [facility] Orthopedic office appointment on SaturdayAugust 09 at 9:00am. Prescriptions (Any new or edited meds): Enoxaparin Sodium [Lovenox] 40 mg SC Q24H #7 disp.syrin Transmission Status: Pending to [place], [place] HYDROcodone/ACETAMINOPHEN [Cecil 5-325] 1 ea PO Q3H PRN #40 tab PRN Reason: Pain Transmission Status: Received by [place], [place] Sennosides/Docusate Sodium [Senokot-S] 2 tab PO HS #60 tab Transmission Status: Pending to [place], [place] Ondansetron HCl [Zofran] 4 mg PO Q6H PRN #30 tab PRN Reason: Nausea Transmission Status: Pending to [facility], [place], [place] Complete Home Medications List: Complete Home Medication List: amlodipine 5 mg tablet 5 mg PO DAILY #90 tab 04/19/20 montelukast 10 mg tablet 5 mg PO DAILY #45 tab 04/19/20 spironolactone 25 mg tablet 25 mg PO DAILY #90 tab 04/19/20 Acetaminophen [Tylenol] 325 mg PO TID PRN 07/06/20 Ascorbic Acid [Vitamin C] 1,000 mg PO DAILY 07/06/20 Cholecalciferol (Vitamin D3) [Vitamin D3] 25 mcg PO DAILY 07/06/20 Cyanocobalamin (Vitamin B-12) [Vitamin B12] 500 mcg PO DAILY 07/06/20 Potassium Gluconate [Potassium] 99 mg PO DAILY 07/06/20 Enoxaparin Sodium [Lovenox] 40 mg SC Q24H #7 disp.syrin 07/20/20 HYDROcodone/ACETAMINOPHEN [Cecil 5-325] 1 ea PO Q3H PRN #40 tab 07/20/20 Ondansetron HCl [Zofran] 4 mg PO Q6H PRN #30 tab 07/20/20 Sennosides/Docusate Sodium [Senokot-S] 2 tab PO HS #60 tab 07/20/20 Amb Orders for Discharge: PT Evaluation and Treatment* Facility: [facility], Location: Rehabilitation Services Forms: Patient Portal Registration
[2020-07-20 13:20] VITALS: BP 128/52
== END 2020-07-20 13:52 | disposition home or self-care (01) | DRG 470 ==
LOC: SUR 08:00 → MS 08:00
PROVIDERS: ADMIT Orthopaedic Surgery; ATTEND Orthopaedic Surgery
DX: J45.909 Unspecified asthma, uncomplicated; M17.11 Unilateral primary osteoarthritis, right knee; E78.5 Hyperlipidemia, unspecified; N18.30 Chronic kidney disease, stage 3 unspecified; I12.9 Hypertensive chronic kidney disease with stage 1 through stage 4 chronic kidney disease, or unspecified chronic kidney disease